=== PATIENT | female | born 1975 | race African-American/Black ===

== ENCOUNTER 2019-03-01 10:11 | Outpatient (CLI) | payer OTHER ==
--- NOTE | 2019-03-01 11:22 | Mammography Report ---
Screening mammogram: Baseline exam. There is a heterogeneously dense and symmetrically distributed fibroglandular pattern. In the exaggerated left CC view there is a circumscribed area of density in the lateral breast which is not clearly identified on the other views. The fibroglandular pattern of the left breast superiorly is somewhat denser than on the right side. The findings are not otherwise remarkable. CAD used. Impression: Left breast asymmetry. Recommendation: Spot compression imaging of the superior portion of the left breast. Ultrasound, as needed. BI-RADS CATEGORY: 0 = Needs additional imaging evaluation ACR BI-RADS MAMMOGRAPHIC CODES: 0 = Needs additional imaging evaluation; 1 = Negative; 2 = Benign; 3 = Probably benign; 4 = Suspicious; 5 = Malignant; 6 = Known biopsy-proven malignancy COMMENT: 1. Dense breast tissue, i.e., adenosis, fibrocystic changes, etc., may obscure an underlying neoplasm. 2. Approximately 10% of cancers are not detected with mammography. 3. A negative mammography report should not delay biopsy if a clinically suspicious mass is present.
== END 2019-03-01 10:12 | disposition home or self-care (01) ==
LOC: SPVWC 10:11
PROVIDERS: ATTEND Internal Medicine
DX: Z12.31 Encounter for screening mammogram for malignant neoplasm of breast (principal)
CPT/HCPCS: 77067

== ENCOUNTER 2019-06-10 10:43 | Outpatient (CLI) | payer OTHER ==
--- NOTE | 2019-06-10 15:57 | Mammography Report ---
DIGITAL DIAGNOSTIC MAMMOGRAM WITH CAD, -- 06/10/2019 INDICATION: Recalled for asymmetries. TECHNIQUE: Digital left mammographic imaging was performed. Spot compression views were obtained. This examination was interpreted with the benefit of Computer-aided Detection analysis. COMPARISON: 03/01/2019 FINDINGS: Breast Density: The breast is heterogeneously dense, which may obscure small masses. There is no evidence of dominant mass, suspicious calcifications or architectural distortion in eithe r breast. Satisfactory effacement of asymmetries on spot images. IMPRESSION: No mammographic evidence of malignancy. Follow up recommendation: Routine yearly BI-RADS Category 1: Negative. A "normal" or negative report should not discourage follow up or biopsy of a clinically significant f inding. A written summary of these findings will be mailed to the patient. The patient will be entered into a mammography reporting system which will generate a reminder letter for the patient's next appointmen t at the appropriate interval. According to the [employer], yearly mammograms are recommended starting at age 40 and continuing as long as a woman is in good health. Breast MRI is recommended for women with an silvia roximately 20-25% or greater lifetime risk of breast cancer, including women with a strong family his tory of breast or ovarian cancer and women who have been treated for Hodgkin's disease. Signer Name: Mark Shore MD Signed: 06/10/2019 3:52 PM Workstation Name: [id number]
== END 2019-06-10 10:44 | disposition home or self-care (01) ==
LOC: SPVWC 10:43
PROVIDERS: ATTEND Internal Medicine
DX: R92.8 Other abnormal and inconclusive findings on diagnostic imaging of breast (principal)

== ENCOUNTER 2020-10-15 11:14 | Outpatient (CLI) | payer OTHER ==
--- NOTE | 2020-10-15 17:29 | Mammography Report ---
DIGITAL SCREENING MAMMOGRAM WITH CAD, 10/15/2020 CLINICAL INFORMATION / INDICATION: Routine screening mammography. -screening TECHNIQUE: Digital bilateral 2D mammography was obtained in the craniocaudal and mediolateral obliqu e projections. This examination was interpreted with the benefit of Computer-Aided Detection analysis . COMPARISON: 06/10/2019 and 03/01/2019. FINDINGS: Breast Density: The breasts are heterogeneously dense, which may obscure small masses. No dominant mass, suspicious calcifications, or architectural distortion in either breast. IMPRESSION: No mammographic evidence of malignancy. Follow up recommendation: Routine yearly BI-RADS Category 1: Negative. A "normal" or negative report should not discourage follow up or biopsy of a clinically significant f inding. A written summary of these findings will be mailed to the patient. The patient will be entered into a mammography reporting system which will generate a reminder letter for the patient's next appointmen t at the appropriate interval. The [employer] recommends yearly mammograms starting at age 40 and continuing as l deo as a woman is in good health. Breast MRI is recommended for women with an approximate 20-25% or greater lifetime risk of breast cancer, including women with a strong family history of breast or ova mina cancer or who have been treated for Hodgkin's disease. Signer Name: Bennie Alcazar MD Signed: 10/15/2020 5:25 PM Workstation Name: [email or web address]
== END 2020-10-15 11:15 | disposition home or self-care (01) ==
LOC: SPVWC 11:14
PROVIDERS: ATTEND Internal Medicine
DX: Z12.31 Encounter for screening mammogram for malignant neoplasm of breast (principal)
CPT/HCPCS: 77067

== ENCOUNTER 2020-12-01 09:00 | Outpatient (CLI) | payer OTHER ==
--- NOTE | 2020-12-02 07:36 | Ultrasound Report ---
LEFT BREAST ULTRASOUND INDICATION: Patient reports palpable findings within the medial and lateral breast. COMPARISON: 10/15/2020, 06/10/2019, 03/31/2019. FINDINGS: A targeted ultrasound of the left upper outer breast was performed to evaluate the site of a reported palpable finding. No suspicious solid or cystic lesion identified. Located at about the 3: 00 position is a focal area of mildly dense fibroglandular tissue which could explain the palpable fi nding. Additionally, a target ultrasound of the left medial breast at the 9:00 position shows no susp icious solid or cystic lesion. No sonographic correlate to the palpable finding. Incidentally noted i s a superficial blood vessel at about the 9:00 periareolar location. IMPRESSION: No evidence of malignancy. The left lateral breast palpable finding appears to correspond with a foca l area of mildly dense fibronodular tissue at the 3:00 position. No sonographic correlate to the left medial breast palpable finding. Clinical management is recommended. Patient will be due for routine screening mammogram in October 2021, unless imaging is clinically indicated sooner. BI-RADS Category 2: Benign. Recommend routine screening mammography in one year A "normal" or negative report should not discourage follow up or biopsy of a clinically significant f inding. A written summary of these findings will be mailed to the patient. FURTHER INFORMATION: According to the [employer], yearly mammograms are recommend ed starting at age 40 and continuing as long as a woman is in good health. Breast MRI is recommended for women with an approximately 20-25% or greater lifetime risk of breast cancer, including women wi th a strong family history of breast or ovarian cancer and women who have been treated for Hodgkin's disease. Signer Name: Jaylan Hernández MD Signed: 12/01/2020 12:04 PM Workstation Name: [id number]
== END 2020-12-01 09:01 | disposition home or self-care (01) ==
LOC: SPVWC 09:00
PROVIDERS: ATTEND Internal Medicine
DX: N64.89 Other specified disorders of breast (principal); N64.4 Mastodynia